=== PATIENT | female | born 1985 | race Two or more races ===

== ENCOUNTER → 2020-03-01 | Outpatient (CLI) | payer SELFPAY | END | disposition home or self-care (01) | LOC: ECT 11:54 | DX: F33.2 Major depressive disorder, recurrent severe without psychotic features (principal); F43.10 Post-traumatic stress disorder, unspecified; X58.XXXA Exposure to other specified factors, initial encounter; Y92.9 Unspecified place or not applicable; G47.00 Insomnia, unspecified; Z86.19 Personal history of other infectious and parasitic diseases ==